=== PATIENT | female | born 1965 | race Caucasian/White ===

== ENCOUNTER → 2017-04-23 | Outpatient (CLI) | payer OTHER ==
--- NOTE | 2017-04-23 17:08 | RAD ---
Examination: Ultrasound left lower extremity venous duplex History: History of left leg pain, swelling Comparison: None available Technique: Grayscale, color Doppler 2-D, spectral waveform analysis of the left lower extremity venous system were performed. Findings: The visualized common femoral vein, superficial femoral vein, popliteal vein demonstrate normal compression and augmentation of flow. The visualized calf veins are patent. Impression: No evidence of deep venous thrombosis identified in the visualized left lower extremity venous system.
== END | disposition home or self-care (01) ==
LOC: US 16:04
PROVIDERS: ATTEND Family Medicine
DX: M79.605 Pain in left leg (principal); M79.89 Other specified soft tissue disorders
CPT/HCPCS: 93971

== ENCOUNTER → 2017-10-12 | Outpatient (CLI) | payer OTHER | END | disposition home or self-care (01) | LOC: KCIC CT 15:23 | DX: Z12.31 Encounter for screening mammogram for malignant neoplasm of breast (principal) | CPT/HCPCS: 77067 ==

== ENCOUNTER → 2017-10-14 | Outpatient (CLI) | payer OTHER | END | disposition home or self-care (01) | LOC: KCIC CT 08:36 | DX: Z01.810 Encounter for preprocedural cardiovascular examination (principal); I25.10 Atherosclerotic heart disease of native coronary artery without angina pectoris; L92.8 Other granulomatous disorders of the skin and subcutaneous tissue; Z83.3 Family history of diabetes mellitus | CPT/HCPCS: 75571 ==

== ENCOUNTER → 2019-08-01 | Outpatient (CLI) | payer OTHER ==
--- NOTE | 2019-08-01 18:45 | KCIC ---
Bilateral digital screening mammograms: Reason for examination: Routine screening. Comparison is made to previous studies dated 10/12/2017 and 04/27/2014. Interpretation was made with the benefit of CAD. The skin and nipples show no abnormalities. No abnormal axillary lymph nodes are seen. The breast parenchyma shows scattered fibroglandular density. (Breast density: Category B.) There continues to be a small nodule consistent with an intramammary lymph node at the 2:00 B position of the left breast. There are no new dominant masses, suspicious calcifications or architectural distortions. Impression: No evidence of malignancy. Recommend routine screening. BI-RADS Category 2: Benign. "Our facility is accredited by the [employer] Mammography [employer]." This patient's information has been entered into a reminder system for the patient to be notified with the results of her examination and a target date for the next mammogram. Electronically signed by: Laurel Taveras MD (08/01/2019 6:42 PM) [id number]
== END | disposition home or self-care (01) ==
LOC: KCIC MAMMO 14:30
PROVIDERS: ATTEND Family Medicine
DX: Z12.31 Encounter for screening mammogram for malignant neoplasm of breast (principal); N63.21 Unspecified lump in the left breast, upper outer quadrant
CPT/HCPCS: 77067

== ENCOUNTER → 2019-08-17 | Outpatient (CLI) | payer OTHER ==
--- NOTE | 2019-08-17 13:17 | RAD ---
Left lower extremity venous duplex study 08/17/2019 Clinical History: Left lower extremity pain, redness. Left upper calf. Technique: Using a combination of real time ultrasound imaging and color-flow and pulse Doppler imaging techniques, including spectral analysis, graded compression and augmentation, duplex evaluation of the deep venous system of the left lower extremity was performed. Multiple images were obtained. Findings: There is no sonographic evidence of deep venous thrombosis involving the visualized deep venous structures of the left lower extremity. Subcutaneous varicosities in the left leg are seen, which appear to be thrombosed. Given history of associated redness findings most likely represent acute superficial thrombophlebitis. Impression: 1. No evidence of deep venous thrombosis involving the left lower extremity 2. Thrombosis of varicosities in the subcutaneous left leg , most likely reflecting acute superficial thrombophlebitis Electronically signed by: Marco Latham MD (08/17/2019 1:15 PM) [id number]
== END | disposition home or self-care (01) ==
LOC: US 11:49
PROVIDERS: ATTEND Family Medicine
DX: I80.02 Phlebitis and thrombophlebitis of superficial vessels of left lower extremity (principal)
CPT/HCPCS: 93971

== ENCOUNTER → 2019-09-06 | Outpatient (CLI) | payer OTHER ==
--- NOTE | 2019-09-06 16:07 | KCIC ---
Left lower extremity venous doppler ultrasound History: Left lower extremity pain behind the knee, history of superficial thrombophlebitis of the left lower extremity Comparison: August 17, 2019 Findings: Multiple grayscale, color, and duplex spectral analysis sonographic images were acquired of the left lower extremity veins to evaluate for the presence of DVT. There is normal phasicity. Normal compression, color-flow, and augmentation is demonstrated from the left common femoral to the popliteal veins. There is normal color flow of the proximal greater saphenous and profunda femoris veins. There is normal color flow of segments of the calf veins. There are again some noncompressible, superficial varicosities in the medial, proximal left calf region. Impression: 1. There is no evidence of deep venous thrombosis from the left common femoral to the popliteal veins. 2. There are again noncompressible superficial varicosities in the left calf region as may be seen with superficial thrombophlebitis. Electronically signed by: Andriy Alfredo MD (09/06/2019 4:04 PM) [id number]
== END | disposition home or self-care (01) ==
LOC: KCIC US 14:42
PROVIDERS: ATTEND Family Medicine
DX: I83.92 Asymptomatic varicose veins of left lower extremity (principal)
CPT/HCPCS: 93971

== ENCOUNTER → 2020-10-09 | Outpatient (CLI) | payer OTHER ==
--- NOTE | 2020-10-09 15:36 | RAD ---
INDICATION: Reason: LT LEG PAIN / Spl. Instructions: / History: COMPARISON: September 06, 2019 TECHNIQUE: Grayscale, color and doppler ultrasound images were obtained of the left lower extremity v enous vasculature. LEFT: No thrombus identified in the common femoral vein, femoral vein, popliteal vein or visualized calf ve ins. IMPRESSION: * No thrombus identified in deep venous system of the left lower extremity. * Superficial thrombophlebitis is not seen on this exam. Electronically signed by: Temo Maldonado MD (10/09/2020 3:34 PM) [id number]
--- NOTE | 2020-10-10 08:11 | RAD ---
Exam performed: X-ray left knee. HISTORY: Left knee pain DATE OF SERVICE: 10/09/2020. COMPARISON: None available FINDINGS: AP, lateral and sunrise view of the left knee is obtained. There is severe narrowing of the medial an d lateral tibiofemoral as well as patellofemoral joint with osteophytic spurring. Multiple loose bodi es are seen in the joint space. There is diffuse soft tissue swelling. There is no acute fracture or dislocation. 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 No acute abnormality seen. Electronically signed by: Sola Vargas MD (10/10/2020 8:09 AM) [id number]
== END ==
LOC: US 14:06
PROVIDERS: ATTEND Nurse Practitioner Gerontology
DX: M17.12 Unilateral primary osteoarthritis, left knee (principal)
CPT/HCPCS: 73562; 93971

== ENCOUNTER → 2021-07-15 | Outpatient (CLI) | payer OTHER ==
--- NOTE | 2021-07-15 13:55 | KCIC ---
EXAM: DUAL ENERGY X-RAY ABSORPTIOMETRY (DEXA). HISTORY: Postmenopausal screening. FINDINGS: The lowest measured T-score is -0.2 in the left hip, based on a bone mineral density of 0.9 20 g/cm^2. Refer to the worksheets for full detail. No comparison examinations are available. IMPRESSION: 1. Normal. Bone mineral density yields a T-score of -1.0 or greater. Fracture risk is low. 2. FRAX report: Not calculated. METHODOLOGY: Dual energy x-ray absorptiometry was performed to measure bone mineral density. The foll owing analysis is based on the 2019 Official Positions of the International Society for Clinical Dens itometry: Measurements of the hips and the average of L1-L4 are preferred. When the spine and/or hip cannot be feasibly measured or interpreted, or in the setting of hyperparathyroidism, distal radial bone minera l density may be measured. The lumbar spine T-score is based on the average bone mineral density of L1-L4. In the setting of art ifact or anatomic abnormality, some lumbar levels may be excluded, and the remaining levels used for calculation. A single lumbar level is not used for diagnosis, and if only a single level is available for assessment, another anatomic site will be used to assign a diagnosis. The hip T-score is based on the bone mineral density measurement of the femoral neck or total proxima l femur of either side, whichever is lowest. Bilateral mean values are not used for diagnosis. The forearm T-score is derived from 33% of the distal radius of the nondominant forearm. Electronically signed by: Sarah Jacome MD (07/15/2021 1:52 PM) [id number]
--- NOTE | 2021-07-15 16:21 | KCIC ---
BILATERAL SCREENING MAMMOGRAM, 3-D History: Routine screening. Comparison: Bilateral mammogram August 01, 2019 and prior years. Technique: MLO and CC digital tomosynthesis (3D) images obtained. Radiologist reviewed these images on dedicated workstation. Findings: Breast Tissue Density A : The breasts are almost entirely fatty. Stable intramammary lymph node left breast 2:00 B position. There are no dominant masses, suspicious microcalcifications or architectural distortion. IMPRESSION: No mammographic evidence of malignancy. Recommend routine screening. BI-RADS category 2: Benign findings. The images were reviewed with computer-aided detection. Patient information is entered into reminder system with a target due date for the next screening [facility] mogram. Mammography is the most sensitive method for finding small breast cancers, but it does not detect the m all and is not a substitute for careful clinical examination. A negative mammogram does not negate a clinically suspicious finding and should not result in delay in biopsying a clinically suspicious a bnormality. "Our facility is accredited by the [employer] Mammography Program." Electronically signed by: Rolan Georges MD (07/15/2021 4:19 PM) [email or web address]
== END ==
LOC: KCIC MAMMO 12:57
PROVIDERS: ATTEND Family Medicine
DX: Z12.31 Encounter for screening mammogram for malignant neoplasm of breast (principal); E55.9 Vitamin D deficiency, unspecified; Z78.0 Asymptomatic menopausal state
CPT/HCPCS: 77063; 77067; 77080